=== PATIENT | female | born 1970 | race Caucasian/White ===

== ENCOUNTER 2017-04-10 12:11 | Emergency (ER) | payer OTHER ==
--- NOTE | 2017-04-10 10:45 | US ---
EXAMINATION TYPE: US abdomen complete DATE OF EXAM: 04/10/2017 COMPARISON: NONE CLINICAL HISTORY: R10.9 Abdominal Pain. N & V for 1 week EXAM MEASUREMENTS: Liver Length: 19.5 cm Gallbladder Wall: 0.2 cm CBD: 0.6 cm Spleen: 14.7 cm Right Kidney: 9.8 x 5.0 x 4.8 cm Left Kidney: 9.6 x 3.9 x 4.6 cm Pancreas: limited due to bowel gas, appears wnl Liver: enlarged and difficult to penetrate Gallbladder: mobile sludge, no obvious stones seen, no wall thickening Evidence for sonographic Zepeda's sign: yes CBD: wnl Spleen: enlarged Right Kidney: possible cortical thinning Left Kidney: possible cortical thinning Upper IVC: wnl Abd Aorta: wnl Tech impression to Dyllan ADLER at office - he is ordering a STAT CT next IMPRESSION: 1. Limited exam due to bowel gas. 2. No acute changes evident. 3. Splenomegaly and Hepatomegaly. 4. Gallbladder sludge.
--- NOTE | 2017-04-10 11:49 | CT ---
EXAMINATION TYPE: CT abdomen wo con DATE OF EXAM: 04/10/2017 COMPARISON: NONE HISTORY: 46-year-old female unspecified abdominal pain. Nausea, vomiting, and diarrhea. TECHNIQUE: Contiguous axial scanning of the abdomen without IV contrast. Coronal and sagittal reconst ructions performed. CT DLP: 304 mGycm Automated exposure control for dose reduction was used. FINDINGS: Heart is normal size without pericardial effusion. Lung bases clear without pleural effusion. Moderate-sized hiatal hernia. Liver enlarged measuring 19.7 cm craniocaudal. There is diffuse low-attenuation of the hepatic parenc hyma compatible with fatty infiltration. Gallbladder, adrenal glands, left kidney, and pancreas show no gross abnormality. Extrarenal pelvis on the right. Spleen is enlarged measuring 14.9 cm craniocaudal, coronal image 49. Nonenlarged borderline to mildly enlarged central and left-sided mid mesenteric lymph nodes are noted measuring up to 8 mm. No dilated small bowel, free fluid, or free air. Oral contrast has progressed to the visualized distal colon. No pericolonic inflammatory change. The pelvis is not imaged. Only the upper abdomen is scanned. No osseous destructive process. IMPRESSION: 1. HEPATOMEGALY (19.7 CM) WITH MODERATE TO SEVERE HEPATIC STEATOSIS. CORRELATE WITH LFT's, LIPID PROF ILE, AND PATIENT RISK FACTORS. 2. MILD SPLENOMEGALY (14.9 CM). CLINICALLY CORRELATE. 3. NUMEROUS BORDERLINE AND MILDLY ENLARGED CENTRAL AND LEFT-SIDED MESENTERIC LYMPH NODES MEASURING UP TO 8 MM COULD REPRESENT MESENTERIC ADENITIS. 4. MODERATE-SIZED HIATAL HERNIA.
[2017-04-10] MEDS ORDERED: SODIUM CHLORIDE 0.9% 1,000 ML IV STA (12:40)
[2017-04-10] MEDS ORDERED: ONDANSETRON 4 MG/2 ML VIAL IVP STA ×2 (12:40→14:03)
--- NOTE | 2017-04-10 13:03 | ED ---
General Adult HPI - General Chief complaint: Abdominal Pain Stated complaint: nausea, vomiting, diarrhea Time Seen by Provider: 04/10/17 12:27 Source: patient, RN notes reviewed Mode of arrival: ambulatory Limitations: no limitations - History of Present Illness Initial comments: This is a 46-year-old female who presents to the emergency department with chief complaint of nausea, vomiting and diarrhea since last Friday. Patient states that she has had a decreased appetite and has not eaten anything since yesterday morning. Patient also complains of abdominal pain in the epigastric and left upper quadrant regions. She also complains of fevers and chills. Today she presented to [facility] and was seen by Dyllan. He sent her over to the hospital to have a computed tomography scan and ultrasound of the abdomen performed. Results demonstrated hepatomegaly, mild splenomegaly and mesenteric adenitis on the left side. After receiving CT and ultrasound patient presented to the emergency department. She stated that labs were drawn in the clinic. Patient denies any medical issues, stating she only has seasonal ALLERGIES which she takes Zyrtec for. She states that she has had one abdominal surgery, a hysterectomy one year ago. She states that she still has her bilateral ovaries. Denies chest pain, shortness of breath, constipation, dysuria or hematuria, numbness or tingling, or vision changes. - Related Data Home Medications Medication Instructions Recorded Confirmed Cetirizine HCl [Zyrtec] 10 mg PO HS 04/10/17 04/10/17 Multivitamins, Thera [Multivitamin 1 tab PO DAILY 04/10/17 04/10/17 (formulary)] Previous Rx's Medication Instructions Recorded Ondansetron Odt [Zofran Odt] 4 mg PO Q8HR PRN #15 tab 04/10/17 Allergies Allergy/AdvReac Type Severity Reaction Status Date / Time guaifenesin [From Mucinex] Allergy Rash/Hives Verified 04/10/17 12:52 morphine Allergy Rash/Hives Verified 04/10/17 12:52 Review of Systems ROS Statement: Those systems with pertinent positive or pertinent negative responses have been documented in the HPI. ROS Other: All systems not noted in ROS Statement are negative. Past Medical History Past Medical History: No Reported History History of Any Multi-Drug Resistant Organisms: None Reported Past Surgical History: Hysterectomy Past Psychological History: No Psychological Hx Reported Smoking Status: Never smoker Past Alcohol Use History: Occasional Past Drug Use History: None Reported General Exam - General Exam Comments Initial Comments: General: Awake and alert, well-developed; in no apparent distress. HEENT: Head atraumatic, normocephalic. Pupils are equal, round and reactive to light. Extraocular movements intact. Oropharynx moist without erythema or exudate. Neck: Supple. Normal ROM. Cardiovascular: Regular rate and rhythm. No murmurs, rubs or gallops. Chest symmetrical. Respiratory: Lungs clear to auscultation bilaterally. No wheezes, rales or rhonchi. Normal respiratory effort with no use of accessory muscles. Abdomen: Soft, non-distended. Tenderness on palpation of epigastric and left upper quadrant regions. There is also tenderness on deep palpation of right lower quadrant, however no rebound. Negative Rovsing sign. No rigidity, rebound or guarding. Normal bowel sounds in all 4 quadrants. Musculoskeletal: Normal ROM, no tenderness bilateral upper and lower extremities. Ambulating normally. Skin: [place], warm and dry without rashes or lesions. Neurological: Alert and oriented x3. CN II-XII grossly intact. Speech is fluent and answers are appropriate. No focal neuro deficits. Psychiatric: Normal mood and affect. No overt signs of depression or anxiety noted. Limitations: no limitations Course Vital Signs 04/10/17 12:20 Temperature 98.3 F Pulse Rate 82 Respiratory 17 Rate Blood Pressure 126/75 O2 Sat by Pulse 98 Oximetry Medical Decision Making - Medical Decision Making This is a 46-year-old female who presents to the emergency department with chief complaint of nausea, vomiting and diarrhea. Computed tomography scan of the patient's abdomen ordered by Dyllan from [facility] demonstrated hepatomegaly, splenomegaly and mesenteric adenitis on the left side. Ultrasound of the abdomen revealed gallbladder sludge, hepatomegaly and splenomegaly. Patient's CBC was within normal limits. ALT was mildly elevated at 54 but all other liver enzymes were within normal limits. Amylase and lipase were within normal limits. Patient states that her pain is in epigastric region and left upper quadrant. This can be explained by a left- sided mesenteric adenitis demonstrated on computed tomography scan. While in the emergency department, patient's vital signs are stable and she is afebrile. She received a bolus of fluids and Zofran. This case was discussed with attending physician, Dr. De La Cruz. Recommended follow up with her primary care provider in 1-2 days to discuss outpatient workup of CT findings. Patient is in no acute distress at this time. She will be discharged home. She is in agreement with plan voices understanding. All questions were answered. - Lab Data Result diagrams: 04/10/17 13:06 04/10/17 13:06 Lab Results 04/10/17 04/10/17 04/10/17 Range/Units 12:40 13:06 13:06 WBC (3.8-10.6) k/uL RBC (3.80-5.40) m/uL Hgb (11.4-16.0) gm/dL Hct (34.0-46.0) % MCV (80.0-100.0) fL MCH (25.0-35.0) pg MCHC (31.0-37.0) g/dL RDW (11.5-15.5) % Plt Count (150-450) k/uL Neutrophils % % Lymphocytes % % Monocytes % % Eosinophils % % Basophils % % Neutrophils # (1.3-7.7) k/uL Lymphocytes # (1.0-4.8) k/uL Monocytes # (0-1.0) k/uL Eosinophils # (0-0.7) k/uL Basophils # (0-0.2) k/uL Sodium 139 (137-145) mmol/L Potassium 3.9 (3.5-5.1) mmol/L Chloride 104 (98-107) mmol/L Carbon Dioxide 26 (22-30) mmol/L Anion Gap 9 mmol/L BUN 11 (7-17) mg/dL Creatinine 0.74 (0.52-1.04) mg/dL Est GFR (MDRD) Af Amer >60 (>60 ml/min/1.73 sqM) Est GFR (MDRD) Non-Af >60 (>60 ml/min/1.73 sqM) Glucose 101 H (74-99) mg/dL Plasma Lactic Acid Preet 0.9 (0.7-2.0) mmol/L Calcium 9.4 (8.4-10.2) mg/dL Total Bilirubin 0.9 (0.2-1.3) mg/dL AST 30 (14-36) U/L ALT 54 H (9-52) U/L Alkaline Phosphatase 74 (38-126) U/L Total Protein 7.0 (6.3-8.2) g/dL Albumin 4.1 (3.5-5.0) g/dL Amylase <30 L (30-110) U/L Lipase 42 (23-300) U/L Urine Color Colorless Urine Appearance Clear (Clear) Urine pH 6.5 (5.0-8.0) Ur Specific [place] 1.001 (1.001-1.035) Urine Protein Negative (Negative) Urine Glucose (UA) Negative (Negative) Urine Ketones Negative (Negative) Urine Blood Negative (Negative) Urine Nitrite Negative (Negative) Urine Bilirubin Negative (Negative) Urine Urobilinogen <2.0 (<2.0) mg/dL Ur Leukocyte Esterase Negative (Negative) 04/10/17 Range/Units 13:06 WBC 4.8 (3.8-10.6) k/uL RBC 4.59 (3.80-5.40) m/uL Hgb 14.5 (11.4-16.0) gm/dL Hct 41.2 (34.0-46.0) % MCV 89.8 (80.0-100.0) fL MCH 31.5 (25.0-35.0) pg MCHC 35.1 (31.0-37.0) g/dL RDW 12.5 (11.5-15.5) % Plt Count 183 (150-450) k/uL Neutrophils % 68 % Lymphocytes % 22 % Monocytes % 6 % Eosinophils % 2 % Basophils % 1 % Neutrophils # 3.3 (1.3-7.7) k/uL Lymphocytes # 1.1 (1.0-4.8) k/uL Monocytes # 0.3 (0-1.0) k/uL Eosinophils # 0.1 (0-0.7) k/uL Basophils # 0.0 (0-0.2) k/uL Sodium (137-145) mmol/L Potassium (3.5-5.1) mmol/L Chloride (98-107) mmol/L Carbon Dioxide (22-30) mmol/L Anion Gap mmol/L BUN (7-17) mg/dL Creatinine (0.52-1.04) mg/dL Est GFR (MDRD) Af Amer (>60 ml/min/1.73 sqM) Est GFR (MDRD) Non-Af (>60 ml/min/1.73 sqM) Glucose (74-99) mg/dL Plasma Lactic Acid Preet (0.7-2.0) mmol/L Calcium (8.4-10.2) mg/dL Total Bilirubin (0.2-1.3) mg/dL AST (14-36) U/L ALT (9-52) U/L Alkaline Phosphatase (38-126) U/L Total Protein (6.3-8.2) g/dL Albumin (3.5-5.0) g/dL Amylase (30-110) U/L Lipase (23-300) U/L Urine Color Urine Appearance (Clear) Urine pH (5.0-8.0) Ur Specific [place] (1.001-1.035) Urine Protein (Negative) Urine Glucose (UA) (Negative) Urine Ketones (Negative) Urine Blood (Negative) Urine Nitrite (Negative) Urine Bilirubin (Negative) Urine Urobilinogen (<2.0) mg/dL Ur Leukocyte Esterase (Negative) - Radiology Data Radiology results: report reviewed CT abdomen impression: 1. Hepatomegaly (19.7 cm) with moderate to severe hepatic steatosis. Correlate with LFTs, lipid profile and patient risk factors. 2. Mild splenomegaly (14.9cm). Clinically correlate. 3. Numerous borderline mildly enlarged central and left-sided mesenteric lymph nodes measuring up to 8 mm could represent mesenteric adenitis. 4. Moderate sized hiatal hernia. Abdomen ultrasound impression: 1. Limited exam due to bowel gas. 2. No acute changes evident. 3. Splenomegaly and hepatomegaly. 4. Gallbladder sludge. Disposition Clinical Impression: Nausea and vomiting, Mesenteric adenitis, Abdominal pain Disposition: HOME SELF-CARE Condition: Good Instructions: Mesenteric Adenitis (ED), Acute Nausea and Vomiting (ED) Additional Instructions: Please take medications as prescribed. Please follow up with primary care provider within 1-2 days. Return to emergency department if symptoms should worsen or any concerns arise. Prescriptions: Ondansetron Odt [Zofran Odt] 4 mg PO Q8HR PRN #15 tab PRN Reason: Nausea Referrals: Jose Carlos Jones MD [Primary Care Provider] - 1-2 days Time of Disposition: 14:21
[2017-04-10 13:15] LABS: Appearance,Urine Clear (Clear); Bilirubin,Urine Negative (Negative); Glucose,Urine (UA) Negative (Negative); Ketones,Urine Negative (Negative); Leukocyte Esterase,Urine Negative (Negative); Nitrite,Urine Negative (Negative); PH, Urine 6.5 (5.0-8.0); Protein,Urine Negative (Negative); Specific Gravity,Urine 1.001 (1.001-1.035); UA Billing (MACRO vs. MICRO) CHEM; Urobilinogen,Urine <2.0 mg/dL (<2.0)
[2017-04-10 13:19] LABS: Basophils % (A) 1 %; CH 32.2; Eosinophils # (A) 0.1 k/uL (0-0.7); Eosinophils % (A) 2 %; HCT 41.2 % (34.0-46.0); HDW 2.59; HGB 14.5 gm/dL (11.4-16.0); Luc # (Auto) 0.09; Luc % (Auto) 2; Lymphocytes # (A) 1.1 k/uL (1.0-4.8); Lymphocytes % (A) 22 %; MCH 31.5 pg (25.0-35.0); MCHC 35.1 g/dL (31.0-37.0); MCV 89.8 fL (80.0-100.0); Mean Platelet Volume 6.5; Monocytes # (A) 0.3 k/uL (0-1.0); Monocytes % (A) 6 %; Neutrophils # (A) 3.3 k/uL (1.3-7.7); Neutrophils % (A) 68 %; RBC 4.59 m/uL (3.80-5.40); RDW 12.5 % (11.5-15.5); WBC 4.8 k/uL (3.8-10.6); WBC (Perox) 4.69
[2017-04-10 13:28] LABS: ALT 54 U/L (9-52); AST 30 U/L (14-36); Alkaline Phosphatase 74 U/L (38-126); Amylase <30 U/L (30-110); Anion Gap 9 mmol/L; Blood Urea Nitrogen 11 mg/dL (7-17); Calcium 9.4 mg/dL (8.4-10.2); Carbon Dioxide 26 mmol/L (22-30); Chloride 104 mmol/L (98-107); Glucose 101 mg/dL (74-99); Non-African American GFR(MDRD) >60 (>60 ml/min/1.73 sqM); Potassium 3.9 mmol/L (3.5-5.1); Sodium 139 mmol/L (137-145); Total Bilirubin 0.9 mg/dL (0.2-1.3)
[2017-04-10 14:42] VITALS: BP 118/66; PULSE 78; RESP 16; TEMP 98.1
== END 2017-04-10 14:42 | disposition home or self-care (01) ==
LOC: EC 12:11
DX: I88.0 Nonspecific mesenteric lymphadenitis (principal); R16.2 Hepatomegaly with splenomegaly, not elsewhere classified; R74.0 Nonspecific elevation of levels of transaminase and lactic acid dehydrogenase [LDH]; Z88.5 Allergy status to narcotic agent; Z88.8 Allergy status to other drugs, medicaments and biological substances; Z79.899 Other long term (current) drug therapy
CPT/HCPCS: 99284; 96374; 96376; 96361; 36415; 80053; 82150; 83605; 83690; 85025; 81003; 76700; 74150; J2405

== ENCOUNTER → 2017-07-18 | Outpatient (CLI) | payer BC ==
--- NOTE | 2017-07-18 10:43 | NM ---
EXAMINATION TYPE: NM hepatobiliary w EF DATE OF EXAM: 07/18/2017 COMPARISON: NONE HISTORY: 47 year-old female right upper quadrant pain TECHNIQUE: After the intravenous administration of 4.9 mCi Tc 99m Mebrofenin hepatobiliary scintigrap hy is performed. Immediate images post injection. FINDINGS: There is satisfactory initial accumulation of tracer by the liver. The gallbladder is visualized wit hin 8 minutes. The small bowel activity is noted within 22 minutes. At one hour 8 ounces of oral en sure plus is given to mimic CCK and gallbladder ejection fraction is calculated at 77 %, upper limits of the normal range, (35-80%). Therefore there is no scintigraphic evidence of cystic or common bile duct obstruction to suggest acute cholecystitis or gallbladder dyskinesia. IMPRESSION: 1. No scintigraphic evidence for acute/chronic cholecystitis or biliary dyskinesia. 2. Borderline elevated gallbladder ejection fraction. Correlate clinically as to the possibility of g allbladder hyperkinesis.
== END | disposition home or self-care (01) ==
LOC: RADNMMAIN 06:45
PROVIDERS: ATTEND Family Medicine
DX: R10.11 Right upper quadrant pain (principal)
CPT/HCPCS: 78226; A9537

== ENCOUNTER 2017-08-29 09:46 | Day surgery (SDC) | payer BC ==
[2017-08-26 11:04] VITALS: BMI 26.4
--- NOTE | 2017-08-29 07:24 | P.GSHP ---
History of Present Illness H&P Date: 08/29/17 CHIEF COMPLAINT: Cholecystitis HISTORY OF PRESENT ILLNESS: The patient is a 47-year-old female who presents with history of epigastric including right upper quadrant abdominal pain. She underwent diagnostic studies for her gallbladder. Separately her clinical picture was consistent with cholecystitis. Now she presents for surgical intervention. PAST MEDICAL HISTORY: Please see list PAST SURGICAL HISTORY: Please see list MEDICATIONS: Please see list ALLERGIES: See list. SOCIAL HISTORY: No recent tobacco use FAMILY HISTORY: Pertinent for gallbladder disease REVIEW OF ORGAN SYSTEMS: CONSTITUTIONAL: No reports of fevers or chills. HEENT: Denies any troubles with the vision or hearing. PHYSICAL EXAM: VITAL SIGNS: Afebrile vital signs stable GENERAL: Well-developed pleasant in no acute distress. HEENT: No scleral icterus. Extraocular movements grossly intact. Moist buccal mucosa. NECK: Supple without lymphadenopathy. CHEST: Unlabored respirations. Equal bilateral excursions. CARDIOVASCULAR: Regular rate regular rhythm rhythm. Distal 2+ pulses. ABDOMEN: Soft, nondistended. Tender along the epigastrium and right upper quadrant. MUSCULOSKELETAL: No clubbing, cyanosis, or edema. NEURO: Cranial nerves II to XII within normal limits. No focal or lateralizing signs. PSYCH: Alert and oriented to person, place and time. ASSESSMENT: 1. Epigastric and right upper quadrant abdominal pain 2. Chronic cholecystitis 3. Symptomatic gallstones. PLAN: 1. Will need a robotic cholecystectomy possible open. Benefits and risks were described. 2. Heparin for DVT prophylaxis 5000 units. 3. Antibiotic prophylaxis. Past Medical History Past Medical History: GERD/Reflux Additional Past Medical History / Comment(s): GALLBLADDER PROBLEMS. SEASONAL ALLERGIES History of Any Multi-Drug Resistant Organisms: None Reported Past Surgical History: Hysterectomy, Tonsillectomy, Tubal Ligation Additional Past Surgical History / Comment(s): CHIARI MALFORMATION SX Past Anesthesia/Blood Transfusion Reactions: No Reported Reaction Smoking Status: Never smoker - Past Family History Father Family Medical History: Cancer Mother Family Medical History: Cancer Medications and Allergies Home Medications Medication Instructions Recorded Confirmed Type Cetirizine HCl [Zyrtec] 10 mg PO DAILY 08/26/17 08/26/17 History Phentermine HCl [Adipex-P] 37.5 mg PO QAM 08/26/17 08/26/17 History Ranitidine HCl [Zantac] 150 mg PO DAILY 08/26/17 08/26/17 History Allergies Allergy/AdvReac Type Severity Reaction Status Date / Time guaifenesin [From Mucinex] Allergy Rash/Hives Verified 08/26/17 10:57 morphine Allergy Rash/Hives Verified 08/26/17 10:57
[~2017-08-29 09:46] MED LIST: DEXAMETHASONE SOD PHOSPHATE 10 MG/ML 1 ML VIAL IV ONE; HEPARIN SODIUM,PORCINE 5,000 UNIT/ML 1 ML VIAL SQ ONE; INDOCYANINE GREEN 25 MG VIAL IV STA; MIDAZOLAM 2 MG/2 ML VIAL IV PRN; ONDANSETRON 4 MG/2 ML VIAL IVP ONE; Pre Op ABX Message 1 EACH MISC MISCELLANE ONE; SCOPOLAMINE 1.5MG/72HR PATCH TRANSDERM ONE; ceFAZolin IN SWFI 2 GM/20 ML SYRINGE IVP ONE; fentaNYL (PF) 50 MCG/ML 2 ML AMP IV PRN
[2017-08-29] MEDS: LACTATED RINGERS 1,000 ML IV SCH ×2 (10:32→10:42)
[2017-08-29] MEDS ORDERED: ONDANSETRON ODT 4 MG TAB PO ONE (10:35)
[2017-08-29] MEDS ORDERED: INDOCYANINE GREEN 25 MG VIAL IV ONE (11:43)
[2017-08-29] MEDS ORDERED: fentaNYL (PF) 50 MCG/ML 2 ML AMP ONE (11:43)
[2017-08-29] MEDS ORDERED: MIDAZOLAM 2 MG/2 ML VIAL ONE (11:43)
[2017-08-29] MEDS ORDERED: NEOSTIGMINE 1 MG/ML 10 ML VIAL ONE (11:43)
[2017-08-29] MEDS ORDERED: LIDOCAINE 1% INJ 10MG/ML (20 ML MDV) ONE (11:43)
[2017-08-29] MEDS ORDERED: PROPOFOL 10 MG/ML 20 ML VIAL IV ONE (11:43)
[2017-08-29] MEDS ORDERED: KETOROLAC 30 MG/ML 1 ML VIAL ONE (11:43)
[2017-08-29] MEDS ORDERED: ROCURONIUM BROMIDE 10 MG/ML 10 ML VIAL IV ONE (11:43)
[2017-08-29] MEDS ORDERED: GLYCOPYRROLATE 0.2 MG/ML 2 ML VIAL ONE (11:43)
[2017-08-29] MEDS ORDERED: SUCCINYLCHOLINE CHLORIDE 100 MG/5 ML SYR IV ONE (11:43)
[2017-08-29] MEDS ORDERED: BUPIVACAINE (PF) 0.5% 30 ML VIAL SQ ONE (12:07)
[2017-08-29] MEDS ORDERED: LACTATED RINGERS 1,000 ML IV ONE (12:30)
--- NOTE | 2017-08-29 12:40 | P.OP ---
Date of Procedure: 08/29/17 Description of Procedure: SURGEON: ANDREEA DAVILA MD LITHOGRAPH PRINTER: CONNER WADDELL PREOPERATIVE DIAGNOSES: 1. Chronic cholecystitis. 2. Right upper quadrant abdominal pain. 3. Gastroesophageal reflux disease. POSTOPERATIVE DIAGNOSES: 1. Chronic cholecystitis. 2. Right upper quadrant abdominal pain. 3. Gastroesophageal reflux disease. OPERATION: Robotic-assisted da Colleen Xi laparoscopic cholecystectomy, multiport with FIREFLY ESTIMATED BLOOD LOSS: 5 mL. SPECIMENS REMOVED: Gallbladder. COMPLICATIONS: None. OPERATIVE FINDINGS: 1. Chronic cholecystitis INDICATIONS: The patient is a 47-year-old female who presents with chronic cholelcystitis. Surgical intervention with a laparoscopic cholecystectomy was described at length including injury to the biliary tree, bleeding, infection, need for further surgery. Informed consent was obtained. Robotic assisted laparoscopic approach was described. Benefits and risks of the procedure including but not limited to bleeding, infection, injury to the biliary tree was described. Informed consent was obtained. DESCRIPTION OF PROCEDURE: Patient was brought to the operating room, placed in supine position. After general induction, the abdomen had been prepped and draped in standard sterile fashion. The robotic da Colleen XI system was primed. After a timeout protocol was performed, the patient had been prepped and draped in standard sterile fashion. The patient was injected with indocyanine green. The robot was docked along the left lateral abdomen. The patient was repositioned in reverse Trendelenburg position. Please note prior to docking of the robot; however, a 5 mm 0 degrees laparoscopic trocar entry was performed along the left upper quadrant. Next, two 8 mm robotic ports were placed along the right upper abdomen. The camera 8-mm port was maintained along the epigastrium. Another 8 mm port was placed along the left upper abdominal wall after exchanging the 5 mm port. Please note that the ports were placed at least 10 to 15 cm away from the target anatomy of the gallbladder. Using a grasper for arm 3, a grasper for arm 2, including hook cautery for arm 1 , the robotic system was docked and primed as described. Instruments were interchanged by the purchasing administrative assistant including hook cautery, Bovie cautery scissors and clip appliers. I had sat at the console. Adhesions were identified along the infundibulum of the gallbladder and addressed using hook cautery. The gallbladder fundus was retracted over the dome of the liver. Initial attention was brought to the infundibulum which was gently retracted in the inferior lateral approach. Using a grasper, the cystic duct including the cystic artery was carefully skeletonized. FIREFLY was used to identify the cystic artery and cystic structures. Using a clip manager quality systems 2 large PLASTIC clips were placed proximally, and 1 clip was placed distally along the cystic duct and then cauterized with the cautery. Again care was taken to avoid any injury to the biliary tree as the common bile duct was clearly visualized during this portion of dissection. Next, the cystic artery was cauterized. Electro-Bovie cautery was used to remove the gallbladder from the hepatic fossa. Hemostasis was checked and found to be adequate. The robot was undocked. I re-scrubbed into the case. Using a 10 mm Endo Catch bag via the left upper quadrant incision, the specimen was removed from the abdominal cavity. All pneumoperitoneum instruments were evacuated from the abdominal cavity. The incisions were reapproximated using 4-0 Monocryl in an interrupted subcuticular fashion. Fascial defect was less than 8 mm in size. Please note along the trocar sites, local anesthetic was placed as a field block prior to insertion of all instruments. Dermabond was applied to the skin. At the end of the procedure needle, sponge, and instrument count had been verified correct by the surgical coder. The patient was transferred to postanesthesia care unit in stable condition. Intraoperative films were shared with the patient's family who were very pleased with the level of care. Console time 8 minutes Plan - Discharge Summary New Discharge Prescriptions: No Action Ranitidine HCl [Zantac] 150 mg PO DAILY Phentermine HCl [Adipex-P] 37.5 mg PO QAM Cetirizine HCl [Zyrtec] 10 mg PO DAILY Discharge Medication List Cetirizine HCl [Zyrtec] 10 mg PO DAILY 08/26/17 [History] Phentermine HCl [Adipex-P] 37.5 mg PO QAM 08/26/17 [History] Ranitidine HCl [Zantac] 150 mg PO DAILY 08/26/17 [History]
[2017-08-29 13:16] VITALS: TEMP 97.7
[2017-08-29] MEDS ORDERED: IPRATROPIUM-ALBUTEROL 3 ML NEB INHALATION STA (13:49)
[2017-08-29 14:07] VITALS: RESP 18
[2017-08-29] MEDS ORDERED: MIDAZOLAM 2 MG/2 ML VIAL IVP ONE (14:10)
[2017-08-29] MEDS ORDERED: ACETAMINOPHEN TAB 500 MG TAB PO ONE (14:46)
[2017-08-29 14:54] VITALS: PULSE 100
[2017-08-29 15:10] VITALS: BP 122/75
== END 2017-08-29 15:30 | disposition home or self-care (01) ==
LOC: OR 09:46
PROVIDERS: ATTEND Surgery Plastic and Reconstructive Surgery
DX: K81.1 Chronic cholecystitis (principal); K21.9 Gastro-esophageal reflux disease without esophagitis; Z79.899 Other long term (current) drug therapy; Z88.5 Allergy status to narcotic agent; Z88.8 Allergy status to other drugs, medicaments and biological substances; Z91.09 Other allergy status, other than to drugs and biological substances
CPT/HCPCS: 47562; S2900; 88304; 94640